=== PATIENT | female | born 1965 | race Two or more races ===

== ENCOUNTER 2024-05-03 14:39 | Emergency (ER) | payer OTHER ==
[~2024-05-03] VITALS: Ht 165.1 cm; Wt 81.8 kg
[2024-05-03 18:23] VITALS: BP 117/76; PULSE 104; RESP 14; TEMP 98.4; O2SAT 97
[2024-05-03] MEDS ORDERED: ACE3T PO (18:24)
[2024-05-03] MEDS ORDERED: CYCL-837 PO (18:24)
[2024-05-03] MEDS: HYDROcodone-ACET 5/325MG TAB PO ONE (18:30)
[2024-05-03] MEDS: ONDANSETRON ODT 4 MG TAB PO ONE (18:31)
== END 2024-05-03 18:38 | disposition home or self-care (01) ==
LOC: ER 14:39 → EDBD 14:39 → ER 18:38
DX: S29.012A Strain of muscle and tendon of back wall of thorax, initial encounter (principal); S16.1XXA Strain of muscle, fascia and tendon at neck level, initial encounter; E11.9 Type 2 diabetes mellitus without complications; E78.00 Pure hypercholesterolemia, unspecified; Z79.899 Other long term (current) drug therapy; Z98.890 Other specified postprocedural states; V89.2XXA Person injured in unspecified motor-vehicle accident, traffic, initial encounter; Y93.I9 Activity, other involving external motion; Y92.488 Other paved roadways as the place of occurrence of the external cause; Y99.8 Other external cause status
CPT/HCPCS: 72040; 72070; 99284; Q0162